=== PATIENT | male | born 1995 | race African-American/Black ===

== ENCOUNTER 2021-09-03 14:26 | Emergency (ER) | payer MEDICAID, SELFPAY ==
[2021-09-03 14:33] VITALS: BP 133/79; PULSE 79; RESP 18; TEMP 36.4; O2SAT 100
[2021-09-03 16:34] VITALS: BP 140/70; PULSE 80; RESP 20; TEMP 36.8; O2SAT 100
--- NOTE | 2021-09-03 17:07 | ED.BACK ---
HPI - Back Pain/Injury General Chief Complaint: Back Pain/Injury Stated Complaint: covid exposure/back pain Time Seen by Provider: 09/03/21 16:32 Source: patient Mode of arrival: ambulatory Limitations: no limitations History of Present Illness HPI Narrative: This is a 26 year old male who presents for evaluation of low back pain. Patient reports he has been having intermittent low sharp back pain for 2 weeks. His pain is worse with movement and bending over. He has been taking tylenol for his pain. He denies pain radiating. He denies leg weakness, numbness or tingling. He also denies pain with urination, retention, dysuria or penile discharge. Patient also states several weeks ago he had rough sex and tip of penis seemed raw . He reports now he has flaky skin to his penis. He denies penile discharge, nausea, vomiting or abdominal pain Related Data Allergies Allergy/AdvReac Type Severity Reaction Status Date / Time No Known Allergies Allergy Verified 09/03/21 17:15 Review of Systems Review of Systems: All systems reviewed & are unremarkable except as noted in HPI and below Constitutional: Constitutional: Denies chills, Reports fatigue and Denies fever(s) ENT: Denies sore throat Cardiovascular: Cardiovascular: Denies chest pain Respiratory: Respiratory: Denies cough and Denies dyspnea Gastrointestinal: Gastrointestinal: Denies abdominal pain, Denies diarrhea, Denies nausea and Denies vomiting Genitourinary: Genitourinary: Denies hematuria, Denies oliguria, Reports genital lesions, Denies dysuria, Denies penile discharge and Denies testicular pain Musculoskeletal: Musculoskeletal: Reports back pain, Denies arthralgias, Denies joint swelling and Denies muscle cramps PMF Past Medical History Medical History (Updated 09/04/21 @ 00:00 by [facility]) Patient denies medical problems Surgical History Surgical History (Updated 09/04/21 @ 01:42 by Billie Wallace MD) No pertinent past surgical history Social History Social History (Updated 09/04/21 @ 01:42 by Billie Wallace MD) Smoking status: Never smoker Exam Const: General: no acute distress and alert Orientation/consciousness: patient oriented x3 HENMT: Head: normocephalic and atraumatic Face and sinus: face symmetric Mouth: Yes Normal oral and palatal mucosa present, Yes lip normal, Yes oropharynx normal and Yes moist mucous membranes Eyes: EOM: EOMs intact bilaterally Resp: Effort & Inspection: normal respiratory effort and no retractions Auscultation: clear to auscultation bilaterally Cardio: Rate: regular rate Rhythm: regular rhythm Heart sounds: no murmurs GI: GI Palp: Yes Soft to palpation, No Tenderness to palpation present (GI) and No Guarding due to palpation present (GI) Auscultation: normal bowel sounds : Penis: Yes circumcised Scrotum: scrotum normal and no scrotal swelling Testes: no testicular swelling and no testicular tenderness Other: dry skin to glans, no ulceration, no erythema Back/Spine/Pelvis: Back: no CVA tenderness Thoracic/Lumbar Spine: thoracic and lumbar spine normal to inspection and No lumbar spinal tenderness Skin: General skin exam: normal color Rashes: no rashes Neuro: General: patient oriented x3, moves all extremities and CN's II-XI intact bilaterally Extrem: General: normal to inspection Psych: Mental Status: mental status grossly normal Affect: normal affect Course Reevaluation(s) Reevaluation #1: I Discussed with patient Urine is clean. I reported STD test is pending. He states he is not worried any way. I discussed discharge plan regarding his back pain that seems to musculoskeletal. PAtient also states his family was found to be positive for COVID. He reports fatigue so he wants a test. Will order test before discharge. Date: 09/03/21 Time: 17:15 Vital Signs Vital signs: Vital Signs Temperature 97.5 F L 09/03/21 14:33 Pulse Rate 79 01
[2021-09-03] MEDS: CYCLOBENZAPRINE HCL 10 MG TABLET PO (17:14)
[2021-09-03] MEDS: NAPROXEN 500 MG TABLET PO (17:15)
[2021-09-03 17:17] LABS: Add Urine Microscopic? NO; Appearance Urine Clear (Clear); Bilirubin Urine Negative (Negative); Blood Urine Negative (Negative); Color Urine Yellow (Yellow); Glucose Urine UA Negative (Negative); Ketones Urine Negative (Negative); Leukocyte Esterase Ur Negative LEU/UL (Negative); Nitrate Urine Negative (Negative); Protein Urine Negative (Negative); Specific Grav Ur 1.019 (1.001-1.035); Urobilinogen Urine Negative mg/dL (<2.0)
== END 2021-09-03 17:43 | disposition home or self-care (01) ==
PROVIDERS: Emergency Provider General Practice
DX: S39.012A Strain of muscle, fascia and tendon of lower back, initial encounter (principal); Z20.822 Contact with and (suspected) exposure to COVID-19; X58.XXXA Exposure to other specified factors, initial encounter
CPT/HCPCS: 81003; 87491; 87591; 99283; A9270